=== PATIENT | female | born 1990 | race Caucasian/White ===

== ENCOUNTER 2018-10-31 18:26 | Emergency (ER) | payer SELFPAY ==
[~2018-10-31 18:26] MED LIST: ONDA4TAB PO; PROM-110 PO
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
[2018-10-31] MEDS ORDERED: ONDANSETRON 4 MG ODT TABDP SL ONE (18:50)
[2018-10-31 19:33] VITALS: BP 117/96
== END 2018-10-31 19:32 | disposition home or self-care (01) ==
LOC: ER 18:37
DX: Z02.83 Encounter for blood-alcohol and blood-drug test (principal); R11.0 Nausea; R53.83 Other fatigue
CPT/HCPCS: 80305; 81001; 81025; 99283; S0119